=== PATIENT | female | born 1995 | race Caucasian/White ===

== ENCOUNTER 2017-02-23 20:37 | Emergency (ER) | payer SELFPAY ==
[2017-02-23 22:05] LABS: Hematocrit 32 % (35-47); Hemoglobin 10.4 g/dl (12.0-16.0); Mean Corpuscular HGB Conc 33 g/dl (31-36); Mean Corpuscular Hemoglobin 28 pg (27-31); Mean Corpuscular Volume 85 fL (80-97); Mean Platelet Volume 9 um3 (7.4-10.4); Red Blood Count 3.75 10^6/ul (4.0-5.4); Red Cell Distribution Width 16 % (10.5-15); White Blood Count 6.1 10^3/ul (3.5-10.8)
[2017-02-23 22:21] LABS: ALT 10 U/L (7-52); AST 17 U/L (13-39); Albumin 4.6 g/dL (3.2-5.2); Alkaline Phosphatase 50 U/L (34-104); Anion Gap 8 mmol/L (2-11); Blood Urea Nitrogen 15 mg/dL (6-24); CO2 Carbon Dioxide 24 mmol/L (22-32); Calcium 9.8 mg/dL (8.6-10.3); Chloride 106 mmol/L (101-111); EGFR African American 102.4 (>60); EGFR Non-African American 79.6 (>60); Globulin 2.7 g/dL (2-4); Glucose 81 mg/dL (70-100); Magnesium 2.1 mg/dL (1.9-2.7); Potassium 3.7 mmol/L (3.5-5.0); Sodium 138 mmol/L (133-145); Total Protein 7.3 g/dL (6.4-8.9)
[2017-02-23 22:56] LABS: TSH (Thyroid Stimulating Horm) 1.29 mcIU/mL (0.34-5.60)
[2017-02-23 23:45] VITALS: BP 111/85
--- NOTE | 2017-02-24 02:59 | ED ---
I, Oh,Soohjonoun, scribed for Colton Brown MD on 02/23/17 at 2115 . Complex/Multi-Sys Presentation - HPI Summary HPI Summary: This 22 y/o female presents to ED for lightheaded dizziness since 2 days ago. Pt reports heavy vaginal bleeding for last 2-3 days, and expresses concern over low hemoglobin. She is going through 10 tampons today. Position and head movement inconsistently make the dizziness worse. Positive heavy vaginal bleeding with clots, mild abd cramping, and mild numbness at bilat upper arms, mild photophobia. Negative n/v, ROQUE, dysuria, syncope, or loss of vision. She is not on BC. Pt is nonsmoker and occasional drinker. Pt states that it is unlikely she is . No prior . Pt denies any PMHx, but reports concern over her irregular period recently. Plan of care involving test, CBC, BMP is discussed with pt, and she is agreeable. - History Of Current Complaint Chief Complaint: EDGeneral Time Seen by Provider: 02/23/17 21:03 Hx Obtained From: Patient, Medical Records Onset/Duration: Sudden Onset, Still Present Timing: Constant Severity Currently: Mild Severity Initially: Mild Associated Signs And Symptoms: Positive: Dizziness - lightheaded, Abdominal Pain - mild abd cramping. Negative: Nausea, Vomiting, Diarrhea - Allergies/Home Medications Allergies/Adverse Reactions: Allergies Allergy/AdvReac Type Severity Reaction Status Date / Time No Known Allergies Allergy Verified 02/23/17 21:42 PMH/Surg Hx/FS Hx/Imm Hx Infectious Disease History: Denies: Traveled Outside the [place] in Last 30 Days - Family History Known Family History: Negative: Cardiac Disease - Social History Occupation: Employed Full-time Alcohol Use: Occasionally Hx Substance Use: No Substance Use Type: Reports: None Hx Tobacco Use: No Smoking Status (MU): Never Smoked Tobacco Review of Systems Negative: Fever Positive: Photophobia Negative: Cough Positive: Abdominal Pain - mild. Negative: Vomiting, Diarrhea, Nausea Positive: other - heavy vaginal bleeding. Negative: dysuria Neurological: Other - Positive lightheaded dizizness Negative: Headache All Other Systems Reviewed And Are Negative: Yes Physical Exam - Summary Physical Exam Summary: The patient is well-nourished in no acute distress and in no acute pain. The skin is warm and dry and skin color reflects adequate perfusion. HEENT: The head is normocephalic and atraumatic. The pupils are equal and reactive. The conjunctivae are clear and without drainage. Nares are patent and without drainage. Mouth reveals moist mucous membranes and the throat is without erythema and exudate. The external ears are intact. The ear canals are patent and without drainage. The tympanic membranes are intact. Neck is supple with full range of motion and non-tender. There are no carotid bruits. There is no neck vein distension. Respiratory: Chest is non-tender. Lungs are clear to auscultation and breath sounds are symmetrical and equal. Cardiovascular: Hear is regular rate and rhythm. There is no murmur or rub auscultated. There is no peripheral edema and pulses are symmetrical and equal. Abdomen: The abdomen is soft and non-tender. There are normal bowel sounds heard in all four quadrants and there is no organomegaly palpated. Musculoskeletal: There is no back pain noted. Extremities are non-tender with full range of motion. There is good capillary refill. There is no peripheral edema or calf tenderness elicited. Neurological: Patient is alert and oriented to person, place and time. The patient has symmetrical motor strength in all four extremities. Cranial nerves are grossly intact. Deep tendon reflexes are symmetrical and equal in all four extremities. Psychiatric: The patient has an appropriate affect and does not exhibit any anxiety or depression. Triage Information Reviewed: Yes Vital Signs On Initial Exam: Initial Vitals Temp Pulse Resp BP Pulse Ox 98.6 F 86 18 131/77 100 02/23/17 20:42 02/23/17 20:42 02/23/17 20:42 02/23/17 20:42 02/23/17 20:42 Vital Signs Reviewed: Yes Diagnostics - Vital Signs Vital Signs Temp Pulse Resp BP Pulse Ox 02/23/17 20:42 98.6 F 86 18 131/77 100 - Laboratory Lab Results: Lab Results 02/23/17 02/23/17 Range/Units 21:55 21:55 WBC 6.1 (3.5-10.8) 10^3/ul RBC 3.75 L (4.0-5.4) 10^6/ul Hgb 10.4 L (12.0-16.0) g/dl Hct 32 L (35-47) % MCV 85 (80-97) fL MCH 28 (27-31) pg MCHC 33 (31-36) g/dl RDW 16 H (10.5-15) % Plt Count 201 (150-450) 10^3/ul MPV 9 (7.4-10.4) um3 Neut % (Auto) 52.4 (38-83) % Lymph % (Auto) 37.8 (25-47) % [place] % (Auto) 8.3 (1-9) % Eos % (Auto) 1.1 (0-6) % Baso % (Auto) 0.4 (0-2) % Absolute Neuts (auto) 3.2 (1.5-7.7) 10^3/ul Absolute Lymphs (auto) 2.3 (1.0-4.8) 10^3/ul Absolute Monos (auto) 0.5 (0-0.8) 10^3/ul Absolute Eos (auto) 0.1 (0-0.6) 10^3/ul Absolute Basos (auto) 0 (0-0.2) 10^3/ul Absolute Nucleated RBC 0 10^3/ul Nucleated RBC % 0 Sodium 138 (133-145) mmol/L Potassium 3.7 (3.5-5.0) mmol/L Chloride 106 (101-111) mmol/L Carbon Dioxide 24 (22-32) mmol/L Anion Gap 8 (2-11) mmol/L BUN 15 (6-24) mg/dL Creatinine 0.88 (0.51-0.95) mg/dL Est GFR ( Amer) 102.4 (>60) Est GFR (Non-Af Amer) 79.6 (>60) BUN/Creatinine Ratio 17.0 (8-20) Glucose 81 (70-100) mg/dL Calcium 9.8 (8.6-10.3) mg/dL Magnesium 2.1 (1.9-2.7) mg/dL Total Bilirubin 1.00 (0.2-1.0) mg/dL AST 17 (13-39) U/L ALT 10 (7-52) U/L Alkaline Phosphatase 50 (34-104) U/L Total Protein 7.3 (6.4-8.9) g/dL Albumin 4.6 (3.2-5.2) g/dL Globulin 2.7 (2-4) g/dL Albumin/Globulin Ratio 1.7 (1-3) TSH 1.29 (0.34-5.60) mcIU/mL Beta HCG, Quant < 0.60 mIU/mL Result Diagrams: 02/23/17 21:55 02/23/17 21:55 Lab Statement: Any lab studies that have been ordered have been reviewed, and results considered in the medical decision making process. Re-Evaluation - Re-Evaluation First Eval Re-Evaluation Time: 22:57 Comment: Dr. Brown in room to update pt on bloodwork and test. Hardcopy of bloodwork is shared with pt. Complex Multi-Symp Course/Dx Assessment/Plan: This 22 y/o female presents to ED with heavy vaginal bleeding and lightheaded dizziness since 2 days ago. Pt reports mild numbness bilat upper arms and photophobia, but denies any ROQUE, vision change, or any weakness. Blood is wnl except mild anemia with 10.4 Hgb. HCG is negative. - Diagnoses Differential Diagnoses/HQI/PQRI: Metabolic Abnormality, Other - , dehydration, dub, menses Provider Diagnoses: Anemia, Lightheadedness Discharge - Discharge Plan Condition: Stable Disposition: HOME Patient Education Materials: Anemia (ED), Lightheadedness (ED) Referrals: [facility] [place] [facility] REFERRAL [Outside] - 2 Days The documentation as recorded by the Puneet franz Soohyun accurately reflects the service I personally performed and the decisions made by , Colton Brown MD.
== END 2017-02-23 23:10 | disposition home or self-care (01) ==
LOC: ED 20:37
DX: D64.9 Anemia, unspecified (principal); R42 Dizziness and giddiness; N93.9 Abnormal uterine and vaginal bleeding, unspecified; R10.9 Unspecified abdominal pain; H53.149 Visual discomfort, unspecified
CPT/HCPCS: 36415; 80053; 83735; 84443; 84702; 85025; 99282